=== PATIENT | female | born 1930 | race Caucasian/White ===

== ENCOUNTER 2016-09-11 13:39 | Emergency (ER) | payer BC, MEDICARE ==
[2016-09-11 19:55] LABS: HEMOGLOBIN 12.5 gm/dl (12.3-15.3); RED BLOOD COUNT 4.3 M/UL (4.00-5.10); WHITE BLOOD COUNT 7.7 K/UL (4.5-11.0)
== END 2016-09-11 21:30 | disposition home or self-care (01) ==
LOC: ER1 13:39
PROVIDERS: Family Medicine
DX: S81.802A Unspecified open wound, left lower leg, initial encounter (principal); L03.116 Cellulitis of left lower limb; R79.1 Abnormal coagulation profile; I10 Essential (primary) hypertension; I48.91 Unspecified atrial fibrillation; F03.90 Unspecified dementia, unspecified severity, without behavioral disturbance, psychotic disturbance, mood disturbance, and anxiety; W18.39XA Other fall on same level, initial encounter
CPT/HCPCS: 36415; 73590; 80048; 85025; 86140; 99283

== ENCOUNTER 2016-09-17 17:01 | Emergency (ER) | payer MEDICARE | END 2016-09-17 18:10 | disposition left against medical advice (07) | LOC: ER1 17:01 | DX: Z53.21 Procedure and treatment not carried out due to patient leaving prior to being seen by health care provider (principal) ==

== ENCOUNTER → 2016-09-23 | Outpatient (CLI) | payer MEDICARE, BC | LOC: HEART 5 09-19 13:30 | DX: I48.91 Unspecified atrial fibrillation (principal); I50.32 Chronic diastolic (congestive) heart failure; I35.1 Nonrheumatic aortic (valve) insufficiency; I07.1 Rheumatic tricuspid insufficiency | CPT/HCPCS: 93306 ==